=== PATIENT | female | born 1975 | race Caucasian/White ===

== ENCOUNTER → 2019-09-19 11:49 | Outpatient (CLI) | payer BC, SELFPAY ==
[2019-09-19 14:20] LABS: Absolute Lymphocyte Count 2.45 X10^3/uL (0.83-4.51); Absolute Neutrophil Count 5.3 X10^3/uL (2.0-7.7); Basophil# 0.09 X10^3/uL; Eosinophil# 0.07 X10^3/uL; Eosinophils% 0.8 % (0-5); Hematocrit 43.9 % (37-47); Hemoglobin 14.6 g/dL (12.0-15.0); Lymphocyte # 2.45 X10^3/ul (4.0); Lymphocyte % 27.8 % (19-41); Mean Corp Hgb Conc 33.3 g/dL (32-36); Mean Corpuscular Hgb 31.7 pg (27.0-32.0); Mean Corpuscular Volume 95.2 fL (81-99); Mean Platelet Vol. 10.8 fl (6.2-12.0); Monocyte# 0.88 X10^3/uL; NRBC Flagged by Analyzer 0 % (0-5); Neutrophil # 5.31 X10^3/uL (2.7-7.7); Neutrophil % 60.3 % (47-70); Platelet Count 296 K/mm3 (150-450); RBC Distribution Width CV 12.6 % (11.6-14.6); RBC Distribution Width SD 44.2 fl (35.1-43.9); Red Blood Count 4.61 M/mm3 (4.2-5.4); White Blood Count 8.8 K/mm3 (4.4-11.0)
[2019-09-19 14:21] LABS: Erythrocyte Sedimentation Rate 10 mm/hr (0-20)
[2019-09-19 14:29] LABS: Anion Gap 6 (5-15); BUN 13 mg/dL (7-18); BUN/Creat Ratio 17.9 RATIO (10-20); Chloride 105 mmol/L (98-107); Creatinine, Serum 0.73 mg/dL (0.55-1.02); EST Glomerular Filtration Rate 92 mL/min (>60); Est Glom Filt Rate - Afr Amer 112 mL/min (>60); Glucose 91 mg/dL (74-106); Potassium 4.6 mmol/L (3.5-5.1); Sodium Level 137 mmol/L (136-145)
== END ==
PROVIDERS: Family Provider Family Medicine; PCP Family Medicine; Referring Provider Family Medicine; Visit Provider Family Medicine
DX: R51 Headache (principal)
CPT/HCPCS: 36415; 80048; 85025; 85652

== ENCOUNTER → 2019-09-20 07:58 | Outpatient (CLI) | payer BC, SELFPAY ==
--- NOTE | 2019-09-20 08:17 | MRI_ITS ---
STUDY: MRI BRAIN WITHOUT CONTRAST REASON FOR EXAM: Female, 44 years old. Blurry vision of the left eye. TECHNIQUE: Standardized multiplanar fat and water weighted pulse sequences were obtained. COMPARISON: Prior comparison studies are not available for review at this time. FINDINGS: Normal size of the ventricles and extra-axial spaces for the patient's age. Normal white matter tracts of the supratentorial brain. There is confluent periventricular hyperintensity cloaking the lateral ventricles, consistent with periventricular leukoaraiosis. There is no evidence for recent intracranial ischemia or other cause of cytotoxic edema on diffusion weighted imaging (DWI). Normal T2* images of the brain without demonstrated susceptibility artifact. There is no demonstrated hemosiderin stain. Normal bilateral basal ganglia. Normal thalami. There is no extra-axial fluid accumulation. Normal flow voids within the major intracranial circulation suggesting patency by spin echo criteria. Normal sella turcica, pituitary gland, infundibular stalk, optic chiasm and hypothalamus. Normal tectal plate and pineal gland. Normal midbrain, dejan and medulla. Normal cerebellum. Normal basal cisterns. Normal bilateral temporal bones. Normal bilateral internal auditory canals. No demonstrated orbital abnormality, within the constraints of a routine brain study. Normal visualized paranasal sinuses. Normal calvarium and skull base. Normal visualized soft tissue structures. Normal visualized upper cervical spine. MRI/Brain without Contrast IMPRESSION: 1. Involutional changes of the brain, as described above. 2. No MR evidence for acute infarct. Electronically Signed: Dilma Vyas MD at 9:55 EDT , Service support ,
== END ==
PROVIDERS: Family Provider Family Medicine; PCP Family Medicine; Referring Provider Family Medicine; Visit Provider Family Medicine
DX: H53.8 Other visual disturbances (principal)
CPT/HCPCS: 70551

== ENCOUNTER → 2019-11-19 15:49 | Outpatient (CLI) | payer BC, SELFPAY ==
--- NOTE | 2019-11-19 16:00 | RAD_ITS ---
STUDY: X-RAY - LUMBAR SPINE REASON FOR EXAM: Female, 44 years old. low back pain TECHNIQUE: 5 view(s) of the lumbar spine were obtained. COMPARISON: None FINDINGS: Normal lumbar lordosis. There is minimal multilevel endplate spondylosis of the lumbar vertebrae. There is mild disc space narrowing at L5/S1 The soft tissue structures are unremarkable. RAD/L/S Spine Min 4 Views IMPRESSION: Mild degenerative changes of the spine. Electronically Signed: Keny Stewart MD at 12:31 EST Tel , Service support ,
== END ==
PROVIDERS: Family Provider Family Medicine; PCP Family Medicine; Referring Provider Family Medicine; Visit Provider Family Medicine
DX: M54.9 Dorsalgia, unspecified (principal)
CPT/HCPCS: 72110

== ENCOUNTER 2020-03-08 21:08 | Emergency (ER) | payer BC, SELFPAY ==
[2020-03-08 21:09] VITALS: BP 143/90; PULSE 85; RESP 16; TEMP 36.5; O2SAT 99; BMI 26.5
--- NOTE | 2020-03-08 22:05 | CT_ITS ---
STUDY: CT BRAIN WITHOUT CONTRAST REASON FOR EXAM: Female, 44 years old. HEADACHE,FEVER,BODY ACHES RADIATION DOSAGE (If Supplied By Facility): CTDIvol = ( 44.99 ) mGy, DLP = ( 829.85 ) mGycm TECHNIQUE: Transaxial CT imaging of the brain was performed without administration of intravenous contrast material. Individualized dose optimization techniques were used for this CT. COMPARISON: No relevant priors. FINDINGS: Normal soft tissue structures. Normal calvarium. Normal size ventricles and extra-axial spaces for the patient''s age. Normal white matter tracts of the cerebral hemispheres. Normal basal ganglia and thalami. Normal brainstem. Normal cerebellum. There is no intracranial hemorrhage. There are no findings of an acute ischemic infarction. There is mucosal thickening of the right maxillary sinus. CT/Brain/Head without Contrast IMPRESSION: Chronic right maxillary sinusitis. Electronically Signed: Otf Castillo MD at 22:51 EDT , Service support ,
--- NOTE | 2020-03-08 22:20 | RAD_ITS ---
STUDY: X-RAY CHEST REASON FOR EXAM: Female, 44 years old. fever, headache TECHNIQUE: PA and lateral views of the chest. COMPARISON: None. FINDINGS: erp specialist leads are present. The lungs are clear and expanded. There is no demonstrated pleural abnormality. Normal size heart. Normal mediastinum and naun. Normal visualized pulmonary arteries. Normal visualized aortic arch and descending thoracic aorta. Normal visualized thoracic spine. Normal visualized ribs, clavicles, and shoulders. There is no demonstrated abnormality of the visualized soft tissue structures of the upper abdomen. RAD/Chest PA and Lateral IMPRESSION: Normal x-ray examination of the chest. Electronically Signed: Otf Castillo MD at 22:36 EDT , Service support ,
[2020-03-08 22:35] LABS: Absolute Neutrophil Count 5.4 X10^3/uL (2.0-7.7); Basophil# 0.09 X10^3/uL; Eosinophils% 2.3 % (0-5); Hemoglobin 13.9 g/dL (12.0-15.0); Lymphocyte % 24.4 % (19-41); Mean Corp Hgb Conc 33.9 g/dL (32-36); Mean Corpuscular Hgb 31.4 pg (27.0-32.0); Mean Corpuscular Volume 92.6 fL (81-99); Mean Platelet Vol. 9.9 fl (6.2-12.0); Monocyte# 0.76 X10^3/uL; Monocyte% 8.8 % (0-10); NRBC Flagged by Analyzer 0 % (0-5); Neutrophil # 5.44 X10^3/uL (2.7-7.7); Neutrophil % 63.3 % (47-70); Platelet Count 285 K/mm3 (150-450); RBC Distribution Width CV 12.1 % (11.6-14.6); RBC Distribution Width SD 41.7 fl (35.1-43.9); Red Blood Count 4.43 M/mm3 (4.2-5.4); White Blood Count 8.6 K/mm3 (4.4-11.0)
--- NOTE | 2020-03-08 22:36 | ED.DCSUM_ITS ---
History of Present Illness Chief Complaint: Headache Detail of Chief Complaint: Acute bifrontal headache Informant: Patient Onset: Today, Hours Context: Sudden Onset Timing: Continuous Quality: Severe pain Location: Bifrontal and by facial Current Severity: Moderate Maximum Severity: Severe Worsened by: Nothing Relieved by: Nothing Associated Symptoms: No other symptoms Narrative: Patient had a severe headache approximately 2 to 3 months ago and had an MRI as an outpatient. She presents with severe bifrontal head and bifacial pain that started 2 hours prior to presentation. There is no visual, ocular auditory s ymptoms. There is no complaint of postnasal drainage. She does have history of mild congestion. There is no history of sinusitis. She complains of subjective fever and chills. She states she did take antipyretic prior to coming. She does report nausea without vomiting or diarrhea. She denies dysuria, frequency, urgency or hematuria. She denies chest pain, cough, shortness of breath or dysp janie on exertion. She denies alteration of taste or smell. She has had contact with several patients who have tested positive for Covid 19. She works at the [employer]. Prior similar symptoms: No Recent Illness/Hospitalization: No - Past Medical History (1) No significant past medical history Status: Acute Past Medical History - Allergies and Home Meds Allergies/Adverse Reactions: Allergies Penicillins [PCN] Allergy (Verified 03/08/20 21:11) Swelling Primary Care Physician: Tom Avila MD [Primary Care Provider] - Prior records reviewed: Yes Past Medical History: None Surgical History: noncontributory Lives: With Family Smoking Status: Never smoker Alcohol: None Drugs: None Review of Systems General: Reports: Chills, Fever, Malaise, Subjective, Sweats - Ports diaphoresis prior to presentation. She states she had to change her close.. Denies: Weight loss Eyes: Denies: Visual changes - bilaterally, Blurred Vision - bilaterally, Diplopia ENT: Denies: Bilateral ear pain, Sore throat Cardiovascular: Denies: Chest pain, Palpitations Respiratory: Denies: Dyspnea, Cough, Dyspnea on exertion Gastrointestinal: Reports: Nausea. Denies: Abdominal pain, Vomiting, Diarrhea, Constipation, Melena, Hematochezia Genitourinary: Denies: Dysuria, Hematuria, Frequency Musculoskeletal: Denies: Myalgias, Arthralgias, Neck pain, Back pain, Swelling, Extremity Pain, -, - Neurological: Reports: Headache. Denies: Weakness, Parasthesia, Numbness Endocrine: Denies: Polyuria, Polydipsia Hematologic: Denies: Easy bruising, Easy bleeding Allergy: Denies: Uticaria, Swelling of the mouth Physical Exam Vital Signs/Narrative: Vital Signs Temp Pulse Resp BP Pulse Ox 03/08/20 21:09 97.7 F L 85 16 143/90 H 99 Inital Vital Signs reviewed: Yes General: Well nourished, Well developed, No Acute Distress Head: Normocephalic, Atraumatic Eyes: Perrl, EOMI. Negative for: Pale conjunctiva, Scleral icterus ENT: Moist mucous membranes, No rhinorrhea, TM's clear. Negative for: Dry mucous membranes, Nasal congestion, Sinus tenderness Neck: Supple, Nontender, No lymphadenopathy, No JVD Cardiovascular: Regular rate, Regular rhythm, No murmurs, Normal S1, Normal S2 Respiratory: No distress, CTA bilaterally, Chest nontender Abdomen: Soft, Nontender, Nondistended, Normal bowel sounds Back: Nontender, Normal Inspection. Negative for: CVA tenderness Extremities: Nontender, No edema Skin: Normal color, No rash Neurological: Alert, Oriented x3, Cranial nerves II-XII grossly intact, Normal Strength, Normal Sensation Psychological: Normal affect, Normal Mood Diagnostic/Tx/Re-eval Chest X-Ray - ED: 2 View, Read by ED Physician, - - See diagnostic testing portion of the chart 03/08/20 22:05 Brain/Head without Contrast [CT] Stat 03/08/20 22:20 Chest PA and Lateral [RAD] Stat Laboratory Results 03/08/20 22:10 WBC 8.6 RBC 4.43 Hgb 13.9 Hct 41.0 MCV 92.6 MCH 31.4 MCHC 33.9 RDW Std Deviation 41.7 RDW Coeff of Colleen 12.1 Plt Count 285 MPV 9.9 Immature Gran % (Auto) 0.200 Neut % (Auto) 63.3 Lymph % (Auto) 24.4 [place] % (Auto) 8.8 Eos % (Auto) 2.3 Baso % (Auto) 1.0 Absolute Neuts (auto) 5.4 Absolute Lymphs (auto) 2.10 Nucleated RBC % 0 2 view chest x-ray was interpreted by me at 2234 as unremarkable. Cardiac silhouette and size are normal. Lung parenchyma is normal. On the lateral view there is mild degenerative changes of the dorsal spinous vertebrae. Otherwise, the osseous structures are unremarkable. Impressions Brain CT 03/08/20 22:05 IMPRESSION: Chronic right maxillary sinusitis. Electronically Signed: Otf Castillo MD at 22:51 EDT , Service support , Chest X-Ray 03/08/20 22:20 IMPRESSION: Normal x-ray examination of the chest. Electronically Signed: Otf Castillo MD at 22:36 EDT , Service support , 03/08/20 22:05 Brain/Head without Contrast [CT] Stat 03/08/20 22:20 Chest PA and Lateral [RAD] Stat Laboratory Results 03/08/20 03/08/20 03/08/20 22:10 22:10 22:10 WBC 8.6 RBC 4.43 Hgb 13.9 Hct 41.0 MCV 92.6 MCH 31.4 MCHC 33.9 RDW Std Deviation 41.7 RDW Coeff of Colleen 12.1 Plt Count 285 MPV 9.9 Immature Gran % (Auto) 0.200 Neut % (Auto) 63.3 Lymph % (Auto) 24.4 [place] % (Auto) 8.8 Eos % (Auto) 2.3 Baso % (Auto) 1.0 Absolute Neuts (auto) 5.4 Absolute Lymphs (auto) 2.10 Nucleated RBC % 0 Sodium 140 Potassium 3.6 Chloride 108 H Carbon Dioxide 28.0 Anion Gap 4 L BUN 15 Creatinine 0.64 Estim Creat Clear Calc 88.72 Est GFR (MDRD) Af Amer 130 Est GFR (MDRD) Non-Af 108 BUN/Creatinine Ratio 23.6 H Glucose 89 Lactic Acid 0.7 Calcium 9.2 Patient's work-up is unremarkable. She was medicated with IV Toradol, Benadryl and Reglan. She was reassessed at 2331. She reports feeling markedly better. She feels comfortable going home. The fact that she had a CAT scan within 2 hours the onset of headache based on prior studies this essentially rules out s ubarachnoid hemorrhage. - Medical Decision Making Patient presents with abrupt onset of bifrontal headache and facial pain. Will review recent MRI. There is no known family history of subarachnoid hemorrhage. With reported fever shaking chills this may represent sinus infection, need to consider meningitis however she has no photophobia or meningeal findings. This may also represent viral infection, urinary tract infection. Work-up included a chest x-ray, appropriate labs and CT of the head. ED Disposition - Plan for ED Patient: Disposition: Home or Assisted Living Diagnosis: Acute intractable headache, Chronic right maxillary sinusitis Instructions: ED Headache Unspecified Referrals: Tom Avila MD [Primary Care Provider] - As Needed
[2020-03-08 22:43] LABS: Anion Gap 4 (5-15); BUN 15 mg/dL (7-18); BUN/Creat Ratio 23.6 RATIO (10-20); Calcium,Total 9.2 mg/dL (8.5-10.1); Chloride 108 mmol/L (98-107); Creatinine, Serum 0.64 mg/dL (0.55-1.02); EST Glomerular Filtration Rate 108 mL/min (>60); Est Glom Filt Rate - Afr Amer 130 mL/min (>60); Estimated Creatinine Clearance 88.72 ml/min; Glucose 89 mg/dL (74-106); Potassium 3.6 mmol/L (3.5-5.1); Sodium Level 140 mmol/L (136-145)
[2020-03-08 22:46] LABS: Lactic Acid 0.7 mmol/L (0.4-1.9)
[2020-03-08] MEDS: DiphenhydrAMINE 50 MG/ML Syringe 25 MG IV (23:07)
[2020-03-08] MEDS: Metoclopramide 10 MG/2 ML Vial IV (23:07)
[2020-03-08] MEDS: Ketorolac 30 MG/ML Syringe 15 MG IV (23:08)
[2020-03-08 23:09] VITALS: BP 130/90; PULSE 72; RESP 18; O2SAT 99
[2020-03-08 23:35] VITALS: BP 122/89; PULSE 81; RESP 14; O2SAT 97
== END 2020-03-08 23:38 | disposition home or self-care (01) ==
PROVIDERS: Emergency Provider Emergency Medicine; PCP Family Medicine
DX: J01.00 Acute maxillary sinusitis, unspecified (principal); R51 Headache; Z88.0 Allergy status to penicillin; Z20.828 Contact with and (suspected) exposure to other viral communicable diseases
CPT/HCPCS: 70450; 71046; 80048; 83605; 85025; 96374; 96375; 99284; A4216

== ENCOUNTER → 2020-09-01 09:22 | Outpatient (CLI) | payer BC, SELFPAY ==
--- NOTE | 2020-09-01 09:29 | RAD_ITS ---
STUDY: X-RAY - LEFT ANKLE REASON FOR EXAM: Female, 45 years old. PT TRIPPED ON A POT HOLE LAST NIGHT, PAIN TO LATERAL ANKLE AND FOOT TECHNIQUE: 3 view(s) of the ankle. COMPARISON: None. FINDINGS: Normal visualized distal tibia and fibula. Normal medial and lateral malleoli. Normal tibiotalar articulation and ankle mortise. Normal visualized talus and calcaneus. The visualized subtalar, talonavicular, calcaneocuboid and tarsal articulations are normal. The soft tissue structures are unremarkable. RAD/Ankle min 3 Views IMPRESSION: Normal x-ray examination of the ankle. Electronically Signed: Cisco Cordon, at 14:02 EDT Tel , Service support ,
== END ==
PROVIDERS: PCP Family Medicine; Referring Provider Family Medicine; Visit Provider Family Medicine
DX: M79.672 Pain in left foot (principal)
CPT/HCPCS: 73610

== ENCOUNTER → 2021-07-02 18:01 | Outpatient (CLI) | payer BC, SELFPAY ==
[2021-07-02 20:47] LABS: Probe Check PASS
== END ==
PROVIDERS: PCP Family Medicine; Visit Provider Family Medicine
DX: U07.1 COVID-19 (principal)
CPT/HCPCS: 87635; U0005; U0003

== ENCOUNTER → 2021-07-15 16:45 | Outpatient (CLI) | payer BC, SELFPAY ==
[2021-07-15 17:50] LABS: Absolute Lymphocyte Count 2.35 X10^3/uL (0.83-4.51); Absolute Neutrophil Count 3.3 X10^3/uL (2.0-7.7); Basophil# 0.06 X10^3/uL; Basophil% 0.9 % (0-1); Eosinophil# 0.14 X10^3/uL; Eosinophils% 2.1 % (0-5); Hematocrit 40.9 % (37-47); Hemoglobin 13.3 g/dL (12.0-15.0); Lymphocyte # 2.35 X10^3/ul (0.83-4.51); Lymphocyte % 35.2 % (19-41); Mean Corp Hgb Conc 32.5 g/dL (32-36); Mean Corpuscular Hgb 30.5 pg (27.0-32.0); Mean Corpuscular Volume 93.8 fL (81-99); Mean Platelet Vol. 10.6 fl (6.2-12.0); Monocyte# 0.78 X10^3/uL; Monocyte% 11.7 % (0-10); NRBC Flagged by Analyzer 0 % (0-5); Neutrophil # 3.32 X10^3/uL (2.7-7.7); Neutrophil % 49.8 % (47-70); Platelet Count 314 K/mm3 (150-450); RBC Distribution Width CV 11.9 % (11.6-14.6); RBC Distribution Width SD 41.1 fl (35.1-43.9); Red Blood Count 4.36 M/mm3 (4.2-5.4); White Blood Count 6.7 K/mm3 (4.4-11.0)
[2021-07-15 18:21] LABS: D-Dimer Quantitative (DVT/PE) <= 0.27 FEU/ug/m (0.27-0.49)
[2021-07-15 18:25] LABS: AST(SGOT) 22 U/L (15-37); Alanine Aminotransfer ALT/SGPT 45 U/L (13-56); Albumin, Serum 3.9 g/dL (3.2-5.0); Alkaline Phosphatase 64 U/L (45-117); Anion Gap 6 (5-15); BUN 20 mg/dL (7-18); BUN/Creat Ratio 34.4 RATIO (10-20); Calcium,Total 9.1 mg/dL (8.5-10.1); Chloride 104 mmol/L (98-107); Creatinine, Serum 0.58 mg/dL (0.55-1.02); EST Glomerular Filtration Rate 119 mL/min (>60); Est Glom Filt Rate - Afr Amer 144 mL/min (>60); Glucose 74 mg/dL (74-106); Protein, Total 7.9 g/dL (6.4-8.2); Sodium Level 137 mmol/L (136-145)
== END ==
PROVIDERS: PCP Family Medicine; Referring Provider Family Medicine; Visit Provider Family Medicine
DX: I77.89 Other specified disorders of arteries and arterioles (principal)
CPT/HCPCS: 36415; 80053; 85025; 85379

== ENCOUNTER 2021-12-24 08:03 | Outpatient (CLI) | payer BC, SELFPAY ==
[2021-12-24 10:09] LABS: Absolute Lymphocyte Count 1.84 X10^3/uL (0.83-4.51); Absolute Neutrophil Count 4.1 X10^3/uL (2.0-7.7); Basophil# 0.07 X10^3/uL; Eosinophil# 0.15 X10^3/uL; Eosinophils% 2.2 % (0-5); Hematocrit 39.8 % (37-47); Hemoglobin 13.5 g/dL (12.0-15.0); Lymphocyte # 1.84 X10^3/ul (0.83-4.51); Lymphocyte % 26.9 % (19-41); Mean Corp Hgb Conc 33.9 g/dL (32-36); Mean Corpuscular Hgb 32.3 pg (27.0-32.0); Mean Corpuscular Volume 95.2 fL (81-99); Mean Platelet Vol. 10.4 fl (6.2-12.0); Monocyte% 10.2 % (0-10); NRBC Flagged by Analyzer 0 % (0-5); Neutrophil # 4.05 X10^3/uL (2.7-7.7); Neutrophil % 59.3 % (47-70); Platelet Count 263 K/mm3 (150-450); RBC Distribution Width SD 45.5 fl (35.1-43.9); Red Blood Count 4.18 M/mm3 (4.2-5.4); White Blood Count 6.8 K/mm3 (4.4-11.0)
[2021-12-24 10:42] LABS: Anion Gap 5 (5-15); BUN 15 mg/dL (7-18); BUN/Creat Ratio 23.4 RATIO (10-20); Calcium,Total 8.6 mg/dL (8.5-10.1); Chloride 108 mmol/L (98-107); Cholesterol 132 mg/dL (200); Creatinine, Serum 0.64 mg/dL (0.55-1.02); EST Glomerular Filtration Rate 106 mL/min (>60); Est Glom Filt Rate - Afr Amer 128 mL/min (>60); Follicle Stimulating Hormone 3.7 mIU/mL; Glucose 76 mg/dL (74-106); High Density Lipoprotein 59 mg/dL; Luteinizing Hormone 7.6 mIU/mL; Potassium 3.9 mmol/L (3.5-5.1); Sodium Level 139 mmol/L (136-145); Thyroid Stim Hormone (TSH) 1.17 uIU/mL (0.358-3.74); Triglycerides 47 mg/dL; Very Low Density Lipoprotein 9 mg/dL (5-40)
[2021-12-29 21:05] LABS: Estrogen, Total, Serum 311 pg/mL (.)
== END 2021-12-24 23:59 | disposition short-term general hospital (02) ==
LOC: MFPLAB 08:04
PROVIDERS: PCP Family Medicine; Referring Provider Family Medicine; Visit Provider Family Medicine
DX: Z00.00 Encounter for general adult medical examination without abnormal findings (principal); R53.83 Other fatigue; Z78.0 Asymptomatic menopausal state
CPT/HCPCS: 36415; 80048; 80061; 82672; 83001; 83002; 84443; 85025

== ENCOUNTER 2022-06-01 20:53 | Emergency (ER) | payer BC, SELFPAY ==
[2022-06-01 20:54] VITALS: BP 130/76; PULSE 82; RESP 15; TEMP 36.6; O2SAT 98; BMI 23.8
--- NOTE | 2022-06-01 21:04 | EKG12_ITS ---
Test Reason : DYSRHYTHMIA Blood Pressure : / mmHG Vent. Rate : 070 BPM Atrial Rate : 070 BPM P-R Int : 156 ms QRS Dur : 086 ms QT Int : 404 ms P-R-T Axes : 050 037 046 degrees QTc Int : 436 ms Normal sinus rhythm Normal ECG Confirmed by JOSÉ KRISHNAN, KISHA ([id number]), make up editor JORDAN FIERRO ([id number]) on 06/03/2022 9:07:14 AM Referred By: FELIBERTO Confirmed By:KISHA KUMAR MD
[2022-06-01 21:48] LABS: Absolute Lymphocyte Count 2.89 X10^3/uL (0.83-4.51); Basophil% 0.8 % (0-1); Eosinophils% 0.8 % (0-5); Hematocrit 40.2 % (37-47); Hemoglobin 13.8 g/dL (12.0-15.0); Lymphocyte # 2.89 X10^3/ul (0.83-4.51); Lymphocyte % 24.1 % (19-41); Mean Corp Hgb Conc 34.3 g/dL (32-36); Mean Corpuscular Volume 93.3 fL (81-99); Monocyte# 0.87 X10^3/uL; Monocyte% 7.2 % (0-10); NRBC Flagged by Analyzer 0 % (0-5); Neutrophil # 8.02 X10^3/uL (2.7-7.7); Neutrophil % 66.9 % (47-70); Platelet Count 265 K/mm3 (150-450); RBC Distribution Width CV 12.3 % (11.6-14.6); RBC Distribution Width SD 43.1 fl (35.1-43.9); Red Blood Count 4.31 M/mm3 (4.2-5.4)
--- NOTE | 2022-06-01 21:51 | ED.VIS.CHEST ---
HPI History of Present Illness Chief Complaint: Dizziness Narrative Narrative: 47-year-old female presenting with some vague left upper chest wall pain. She states it feels like she got punched. She is not describes as sharp or stabbing. She does not describe this as pressure-like or squeezing. She states that for the last few days she has had some vertiginous dizziness which has been making her feel off. She states that this started while she was sitting at her desk. It has been intermittent. PFSH PFSH Medical History no medical history Home Medications diazepam 2 mg tablet (Valium) 2 mg PO TID PRN dizziness or vertigo #12 tabs 06/01/22 [Rx Last Taken Unknown] meclizine 25 mg tablet 25 mg PO TID PRN dizziness #30 tabs 06/01/22 [Rx Last Taken Unknown] promethazine 25 mg tablet 25 mg PO TID PRN nausea and vomiting #30 tabs 06/01/22 [Rx Last Taken Unknown] Allergy/AdvReac Type Severity Reaction Status Date / Time Penicillins [PCN] Allergy Swelling Verified 06/01/22 20:58 Social History Smoking Status: Never smoker EXAM Physical Exam Const Vital Signs: 06/01/22 20:54 06/01/22 21:49 06/01/22 21:54 Temperature 97.8 F Temperature Source Temporal Pulse Rate 82 Pulse Rate [Lying] Pulse Rate [Sitting (for 1 minute prior to obtaining)] Pulse Rate [Standing (for 1 minute prior to obtaining)] Respiratory Rate 15 Respiratory Effort Normal Non-Labored Respiratory Pattern Normal Blood Pressure 130/76 H Blood Pressure [Lying] Blood Pressure [Sitting (for 1 minute prior to obtaining)] Blood Pressure [Standing (for 1 minute prior to obtaining)] Blood Pressure Mean 94 Blood Pressure Mean [Lying] Blood Pressure Mean [Sitting (for 1 minute prior to obtaining)] Blood Pressure Mean [Standing (for 1 minute prior to obtaining)] Pulse Ox 98 Oxygen Delivery Method Room Air Room Air 06/01/22 21:59 06/01/22 23:00 06/01/22 23:00 Temperature Temperature Source Pulse Rate 70 Pulse Rate [Lying] 72 Pulse Rate [Sitting (for 1 minute prior to obtaining)] 75 Pulse Rate [Standing (for 1 minute prior to obtaining)] 100 Respiratory Rate 17 17 Respiratory Effort Respiratory Pattern Blood Pressure 133/97 H Blood Pressure [Lying] 109/72 Blood Pressure [Sitting (for 1 minute prior to obtaining)] 115/79 Blood Pressure [Standing (for 1 minute prior to obtaining)] 100/80 Blood Pressure Mean 109 Blood Pressure Mean [Lying] 84 Blood Pressure Mean [Sitting (for 1 minute prior to obtaining)] 91 Blood Pressure Mean [Standing (for 1 minute prior to obtaining)] 86 Pulse Ox 99 99 Oxygen Delivery Method Room Air Room Air 06/01/22 23:50 Temperature Temperature Source Pulse Rate 80 Pulse Rate [Lying] Pulse Rate [Sitting (for 1 minute prior to obtaining)] Pulse Rate [Standing (for 1 minute prior to obtaining)] Respiratory Rate 17 Respiratory Effort Respiratory Pattern Blood Pressure 111/73 Blood Pressure [Lying] Blood Pressure [Sitting (for 1 minute prior to obtaining)] Blood Pressure [Standing (for 1 minute prior to obtaining)] Blood Pressure Mean Blood Pressure Mean [Lying] Blood Pressure Mean [Sitting (for 1 minute prior to obtaining)] Blood Pressure Mean [Standing (for 1 minute prior to obtaining)] Pulse Ox 98 Oxygen Delivery Method Positive well nourished General Appearance ED: NAD; Negative for pallor HEENT Reports moist mucous membranes and other Patient to be a small defect in the central aspect of the left TM. There is no drainage from this. It appears to be old. TM is not erythematous. External auditory canals normal. [place] Hallpike: + Vertiginous dizziness reproduced. Nystagmus noted. normocephalic and other Eyes PERRL Chest Wall inspection of chest normal and palpation of chest normal Resp normal respiratory effort and clear to auscultation bilaterally Cardio regular rate and regular rhythm GI normal to inspection, nondistended, normoactive bowel sounds Extremity normal to inspection Neuro oriented x3 and CN's II-XII intact bilaterally Sensorium / Orientation: awake Motor Exam: strength 5/5 throughout Psych Mood & Affect: anxious Skin no rashes or lesions noted General Skin Exam: Negative for jaundice or pallor Heart Score History: Slightly/Non-Suspicious ECG: Normal Age: >45 - <65 years Risk Factors: No Risk Factors Troponin: </= Normal Limit Score: 1 MDM MDM MDM Narrative Medical decision making narrative: Patient presenting with vertiginous dizziness. She is given meclizine and Phenergan. IV line established and patient had EKG which on my interpretation shows a normal sinus rhythm with a ventricular rate of 70 bpm without sign of ischemic change or dysrhythmia. High-sensitivity troponin is less than 3 CBC shows mild leukocytosis of 12.0 without left shift. Hemoglobin and hematocrit stable. Platelets normal. Renal function electrolytes are normal exception of a slightly low potassium of 3.1. Chest x-ray on my interpretation shows no acute cardiopulmonary process and the radiologist agree with on examination she has a positive [place]-Hallpike. She is also noted to have a small perforation of her left TM. There is no erythema, bulging, drainage. External auditory canals normal. This does not appear to be acute. The patient does complain of recent pain in her left ear however. Patient given meclizine and Phenergan and she was able to do orthostatics which were negative. She still complaining of some vertiginous dizziness. The patient does not want to stay in the hospital although this was offered for her. Patient will be prescribed meclizine and she is given some Valium here in the ED and a short prescription for home. She is given follow-up with ENT given the vertiginous symptoms and the TM abnormality. Impression: 1. Vertigo 2. TM rupture left ear 3. Chest pain noncardiac Lab Data Attestation: I reviewed the patient's lab results. Labs: Laboratory Results - last 24 hr 06/01/22 06/01/22 21:40 21:40 WBC 12.0 H RBC 4.31 Hgb 13.8 Hct 40.2 MCV 93.3 MCH 32.0 MCHC 34.3 RDW Std Deviation 43.1 RDW Coeff of Colleen 12.3 Plt Count 265 MPV 10.0 Immature Gran % (Auto) 0.200 Neut % (Auto) 66.9 Lymph % (Auto) 24.1 [place] % (Auto) 7.2 Eos % (Auto) 0.8 Baso % (Auto) 0.8 Absolute Neuts (auto) 8.0 H Absolute Lymphs (auto) 2.89 Nucleated RBC % 0 Sodium 140 Potassium 3.1 L Chloride 106 Carbon Dioxide 25.0 Anion Gap 9 BUN 18 Creatinine 0.84 Estim Creat Clear Calc 65.48 Est GFR (MDRD) Af Amer 93 Est GFR (MDRD) Non-Af 77 BUN/Creatinine Ratio 21.4 H Glucose 123 H Calcium 9.5 Troponin I High Sens < 3 L Discharge Plan Triage Chief Complaint: Dizziness ED Provider: Oniel Martinez Dx/Rx/DC Orders Instructions: ED Chest Pain, Noncardiac, ED BPV Vertigo, ED Ruptured Eardrum, Traumatic Prescriptions: New meclizine 25 mg tablet 25 mg PO TID PRN (Reason: dizziness) Qty: 30 0RF promethazine 25 mg tablet 25 mg PO TID PRN (Reason: nausea and vomiting) Qty: 30 0RF diazepam [Valium] 2 mg tablet 2 mg PO TID PRN (Reason: dizziness or vertigo) Qty: 12 0RF Primary Care Provider: Tom Avila Referrals: Bud Cifuentes MD [STAFF PHYSICIAN] - As soon as possible Tom Avila MD [Primary Care Provider] - Disposition Disposition: Home, Self Care
[2022-06-01] MEDS: Meclizine HCl 25 MG Tablet PO (21:57)
[2022-06-01 21:59] VITALS: BP 133/97; PULSE 70; RESP 17; O2SAT 99
[2022-06-01 22:06] LABS: Anion Gap 9 (5-15); BUN 18 mg/dL (7-18); BUN/Creat Ratio 21.4 RATIO (10-20); Calcium,Total 9.5 mg/dL (8.5-10.1); Chloride 106 mmol/L (98-107); Creatinine, Serum 0.84 mg/dL (0.55-1.02); EST Glomerular Filtration Rate 77 mL/min (>60); Est Glom Filt Rate - Afr Amer 93 mL/min (>60); Estimated Creatinine Clearance 65.48 ml/min; Glucose 123 mg/dL (74-106); Potassium 3.1 mmol/L (3.5-5.1); Sodium Level 140 mmol/L (136-145); Troponin-I HS < 3 pg/mL (3.0-54.0)
[2022-06-01 23:00] VITALS: BP 100/80; BP 109/72; BP 115/79; PULSE 100; PULSE 72; PULSE 75; RESP 17; O2SAT 99
--- NOTE | 2022-06-01 23:10 | RAD_ITS ---
EXAM: XR CHEST, 1 VIEW CLINICAL INDICATION: palpitations TECHNIQUE: Frontal view of the chest. This report was created using [employer] report generation technology. COMPARISON: March 08, 2020. FINDINGS: LUNGS AND PLEURAL SPACES: Unremarkable. No consolidation or edema. No pneumothorax. No effusion. HEART: Unremarkable. Cardiac silhouette not enlarged. MEDIASTINUM: Central airways and mediastinal contour are unremarkable. BONES/JOINTS: Unremarkable. SOFT TISSUES: Unremarkable. RAD/Chest 1 View (Portable) IMPRESSION: No radiographic evidence of acute cardiopulmonary disease. Electronically Signed: Paola Sommers MD at 1:16 EDT ,
[2022-06-01 23:50] VITALS: BP 111/73; PULSE 80; RESP 17; O2SAT 98
[2022-06-02] MEDS: diazePAM 2 MG Tablet PO
== END 2022-06-02 00:02 | disposition home or self-care (01) ==
PROVIDERS: Emergency Provider Student in an Organized Health Care Education/Training Program; PCP Family Medicine; Visit Provider Student in an Organized Health Care Education/Training Program
DX: R07.89 Other chest pain (principal); H92.02 Otalgia, left ear; R42 Dizziness and giddiness
CPT/HCPCS: 71045; 80048; 84484; 85025; 93005; 99285; A4216

== ENCOUNTER → 2023-08-05 | Outpatient (CLI) | payer OTHER, BC, SELFPAY ==
[2023-08-05 10:30] LABS: Vitamin D,25 Hydroxy 47.4 ng/mL
[2023-08-05 10:35] LABS: Anion Gap 5 (5-15); BUN 20 mg/dL (7-18); BUN/Creat Ratio 29.2 RATIO (10-20); Calcium,Total 8.7 mg/dL (8.5-10.1); Chloride 107 mmol/L (98-107); Cholesterol 144 mg/dL (200); Creatinine, Serum 0.69 mg/dL (0.55-1.02); EST Glomerular Filtration Rate 97 mL/min (>60); Est Glom Filt Rate - Afr Amer 117 mL/min (>60); Glucose 84 mg/dL (74-106); High Density Lipoprotein 63 mg/dL; Sodium Level 137 mmol/L (136-145); Thyroid Stim Hormone (TSH) 0.98 uIU/mL (0.358-3.74); Triglycerides 40 mg/dL; Very Low Density Lipoprotein 8 mg/dL (5-40)
== END | disposition home or self-care (01) ==
LOC: MFPLAB 08:55
PROVIDERS: PCP Family Medicine; Visit Provider Family Medicine
DX: Z00.00 Encounter for general adult medical examination without abnormal findings (principal)
CPT/HCPCS: 36415; 80048; 80061; 82306; 84443

== ENCOUNTER → 2025-04-18 | Outpatient (CLI) | payer BC, SELFPAY | END | disposition home or self-care (01) | LOC: LABSPEC 16:44 | PROVIDERS: PCP Family Medicine; Referring Provider Family Medicine; Visit Provider Family Medicine | DX: N39.0 Urinary tract infection, site not specified (principal) | CPT/HCPCS: 87077; 87086; 87088; 87186 ==